=== PATIENT | female | born 1955 | race Two or more races ===

== ENCOUNTER 2020-07-16 08:50 | Outpatient (CLI) | payer OTHER | END 2020-07-16 09:01 | disposition home or self-care (01) | LOC: RX STUDY 08:50 | PROVIDERS: ATTEND Internal Medicine Pulmonary Disease | DX: J98.11 Atelectasis (principal); M81.0 Age-related osteoporosis without current pathological fracture; C34.92 Malignant neoplasm of unspecified part of left bronchus or lung; C53.8 Malignant neoplasm of overlapping sites of cervix uteri; I35.2 Nonrheumatic aortic (valve) stenosis with insufficiency; Z86.711 Personal history of pulmonary embolism; R13.10 Dysphagia, unspecified; J44.9 Chronic obstructive pulmonary disease, unspecified ==